=== PATIENT | female | born 1985 | race Caucasian/White ===

== ENCOUNTER 2018-02-21 07:12 | Emergency (ER) | payer BC ==
[~2018-02-21] VITALS: Ht 165.1 cm; Wt 77.3 kg
[2018-02-21] MEDS ORDERED: KETOROLAC 30 MG INJ IV STA (07:27)
[2018-02-21] MEDS ORDERED: KETOROLAC 30 MG INJ IM STA (07:28)
[2018-02-21 07:30] VITALS: Ht 165.1 cm; Wt 77.3 kg
[2018-02-21] MEDS ORDERED: CITA10TA5 PO (07:42)
[2018-02-21] MEDS ORDERED: HYDROmorphONE 2 MG/ML SYG IM STA (08:28)
[2018-02-21] MEDS ORDERED: ONDANSETRON (ODT) 4 MG TAB ODT STA (08:28)
[2018-02-21] MEDS ORDERED: HYDR-4011 PO (08:29)
[2018-02-21 10:38] VITALS: BP 110/55; PULSE 60; RESP 17
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
== END 2018-02-21 11:20 | disposition home or self-care (01) ==
LOC: E/R 07:12
DX: M54.5 Low back pain (principal)
CPT/HCPCS: 96372; 99284; J1170; J1885

== ENCOUNTER 2018-02-23 12:17 | Emergency (ER) | payer BC ==
[~2018-02-23] VITALS: Ht 167.6 cm; Wt 74.0 kg
[~2018-02-23 12:17] MED LIST: CITA10TA5 PO; HYDR-4011 PO
[2018-02-23 12:34] VITALS: Ht 167.6 cm; Wt 74.0 kg
[2018-02-23] MEDS ORDERED: KETOROLAC 30 MG INJ IM STA (12:51)
[2018-02-23] MEDS ORDERED: ONDANSETRON (ODT) 4 MG TAB ODT STA (12:51)
[2018-02-23] MEDS ORDERED: METHOCARBAMOL 750 MG TAB PO ONE (14:30)
[2018-02-23] MEDS ORDERED: HYDROCODONE/APAP (5/325) TAB PO ONE (15:30)
[2018-02-23] MEDS ORDERED: HYDR-4011 PO (16:54)
[2018-02-23] MEDS ORDERED: METH750T93 PO (16:54)
[2018-02-23 17:09] VITALS: BP 105/78; PULSE 75; RESP 16
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
== END 2018-02-23 17:09 | disposition home or self-care (01) ==
LOC: FTE 12:17
DX: M54.5 Low back pain (principal)
CPT/HCPCS: 72131; 81025; 96372; 99285; J1885